=== PATIENT | female | born 1960 | race Caucasian/White ===

== ENCOUNTER 2018-05-05 20:31 | Emergency (ER) | payer MEDICAID ==
[~2018-05-05] VITALS: Ht 165.1 cm; Wt 82.0 kg
[~2018-05-05 20:31] MED LIST: ACET1TAB12 PO; ALBU18HF2 INH; ALBU8HFA PO; AZIT250T PO; CLIN300C85 PO; HYDR-4383 PO; LISI-600; LORA1TAB; PRED50TA PO
[2018-05-05 20:39] VITALS: BP 164/95
[2018-05-05] MEDS ORDERED: LIDOcaine 1.5% w/epinephrine 1:200,000 5ml ampul IJ ONE (21:30)
[2018-05-05] MEDS ORDERED: ibuprofen tablet 400 MG TABLET PO ONE (21:30)
[2018-05-05] MEDS ORDERED: CEPH-572 PO (21:32)
[2018-05-05] MEDS ORDERED: LIDOcaine 1% w/epiNEPHrine 1:200,000 30ml vial IJ ONE (21:40)
[2018-05-05] MEDS ORDERED: cephalexin 250mg capsule PO ONE (22:00)
== END 2018-05-05 22:14 | disposition home or self-care (01) ==
LOC: ER 20:32
DX: L02.512 Cutaneous abscess of left hand (principal); T63.391A Toxic effect of venom of other spider, accidental (unintentional), initial encounter; I10 Essential (primary) hypertension; Z72.89 Other problems related to lifestyle; Z56.0 Unemployment, unspecified; Z88.1 Allergy status to other antibiotic agents; Z88.6 Allergy status to analgesic agent; Z88.8 Allergy status to other drugs, medicaments and biological substances; Y92.89 Other specified places as the place of occurrence of the external cause
CPT/HCPCS: 10060; 99283; J3490

== ENCOUNTER 2019-01-28 17:18 | Emergency (ER) | payer MEDICAID ==
[~2019-01-28] VITALS: Ht 165.1 cm; Wt 77.3 kg
[~2019-01-28 17:18] MED LIST changes: +CLIN-90 PO; -CLIN300C85 PO
[2019-01-28] MEDS ORDERED: ketorolac tromethamine 15mg/ml inj. IM ONE (18:30)
[2019-01-28] MEDS ORDERED: DOXY100C2 PO (18:39)
[2019-01-28] MEDS ORDERED: IBUP-1985 PO (18:41)
[2019-01-28 19:01] VITALS: BP 197/127
== END 2019-01-28 18:48 | disposition home or self-care (01) ==
LOC: ER 17:19
DX: M70.32 Other bursitis of elbow, left elbow (principal); L03.114 Cellulitis of left upper limb; I10 Essential (primary) hypertension; G89.29 Other chronic pain; F32.9 Major depressive disorder, single episode, unspecified; F10.99 Alcohol use, unspecified with unspecified alcohol-induced disorder; F12.90 Cannabis use, unspecified, uncomplicated; Z86.14 Personal history of Methicillin resistant Staphylococcus aureus infection; Z90.89 Acquired absence of other organs; Z98.51 Tubal ligation status; Z56.0 Unemployment, unspecified; Z88.2 Allergy status to sulfonamides; Z79.899 Other long term (current) drug therapy; Y90.9 Presence of alcohol in blood, level not specified; Y93.89 Activity, other specified
CPT/HCPCS: 96372; 99283; J1885

== ENCOUNTER 2019-01-31 18:44 | Emergency (ER) | payer MEDICAID ==
[~2019-01-31] VITALS: Ht 165.1 cm; Wt 78.0 kg
[~2019-01-31 18:44] MED LIST changes: -CLIN-90 PO; +CLIN-96 PO; +DOXY100C2 PO; +IBUP-1985 PO
[2019-01-31] MEDS ORDERED: piperacillin/tazo 3.375gm/50ml 50 ML IV ONE (19:40)
[2019-01-31 20:12] LABS: BASOPHILS # (AUTO) 0.1 X10'3 (0-0.2); EOSINOPHILS # (AUTO) 0.1 X10'3 (0-0.9); EOSINOPHILS % (AUTO) 1.2 % (0-6); HEMATOCRIT 47.4 % (35.0-45.0); HEMOGLOBIN 15.8 g/dl (12.0-16.0); LYMPHOCYTES # (AUTO) 2.4 X10'3 (1.1-4.8); LYMPHOCYTES % (AUTO) 23.5 % (21-51); MEAN CORPUSCULAR HEMOGLOBIN 30.4 PG (27.0-31.0); MEAN CORPUSCULAR HGB CONC 33.3 g/dL (33.0-36.5); MEAN CORPUSCULAR VOLUME 91.3 FL (78-98); MEAN PLATELET VOLUME 9.6 FL (7.4-10.4); MONOCYTES # (AUTO) 0.7 X10'3 (0-0.9); MONOCYTES % (AUTO) 6.5 % (2-12); NEUTROPHILS % (AUTO) 67.8 % (42-75); PLATELET COUNT 167 X10'3 (140-440); RED BLOOD COUNT 5.19 X10'6 (4.20-5.60); RED CELL DISTRIBUTION WIDTH 15.1 % (11.5-14.5); WHITE BLOOD COUNT 10.3 X10'3 (4.5-11.0)
[2019-01-31 20:26] LABS: ALANINE AMINOTRANSFERASE 52 U/L (12-78); ALBUMIN 3.8 G/DL (3.4-5.0); ALBUMIN/GLOBULIN RATIO 1.1 (1.1-1.5); ALKALINE PHOSPHATASE 149 IU/L (46-116); ANION GAP 10 (8-16); ASPARTATE AMINO TRANSFERASE 35 U/L (10-37); BILIRUBIN,TOTAL 0.7 MG/DL (0.1-1.0); BLOOD UREA NITROGEN 11 MG/DL (7-18); BUN/CREATININE RATIO 15.7 (6.6-38.0); CALCIUM 8.9 MG/DL (8.5-10.1); CHLORIDE 105 MMOL/L (99-107); GLUCOSE 90 MG/DL (70-104); POTASSIUM 4.3 MMOL/L (3.5-5.1); SODIUM 141 MMOL/L (135-145); TOTAL CARBON DIOXIDE 26.5 MMOL/L (24-32); TOTAL PROTEIN 7.4 G/DL (6.4-8.2); eGFR 86 ML/MIN
--- NOTE | 2019-01-31 20:38 | NUR ---
JORDY Matthews made aware of BP 189/129, PA to review VS. No new orders at this time.
[2019-01-31] MEDS ORDERED: AMOX-422 PO (20:50)
[2019-01-31] MEDS ORDERED: [UNRECOGNIZED DRUG - OTHER] PO (20:58)
[2019-01-31] MEDS ORDERED: SUMA50TA17 PO (20:58)
[2019-01-31] MEDS ORDERED: LORA10TA7 PO (20:58)
[2019-01-31] MEDS ORDERED: NAPR-996 PO (20:58)
[2019-01-31 22:12] VITALS: BP 185/129
== END 2019-01-31 22:13 | disposition home or self-care (01) ==
LOC: ER 18:44
DX: L03.114 Cellulitis of left upper limb (principal); M70.22 Olecranon bursitis, left elbow; I10 Essential (primary) hypertension; G89.29 Other chronic pain; F12.90 Cannabis use, unspecified, uncomplicated; Z56.0 Unemployment, unspecified; Z90.89 Acquired absence of other organs; Z98.51 Tubal ligation status; Z86.14 Personal history of Methicillin resistant Staphylococcus aureus infection; Z88.2 Allergy status to sulfonamides; Z79.899 Other long term (current) drug therapy
CPT/HCPCS: 36415; 71045; 80053; 85025; 93005; 96365; 99284; J2543

== ENCOUNTER 2024-11-30 15:34 | Outpatient (CLI) | payer MEDICAID ==
[~2024-11-30 15:34] MED LIST changes: -ACET1TAB12 PO; -ALBU8HFA PO; -AZIT250T PO; -CLIN-96 PO; -DOXY100C2 PO; -HYDR-4383 PO; -LISI-600; +LISI20TA28; +LORA10TA7 PO; +NAPR-1168 PO; -PRED50TA PO; +PYRI-4 PO; +SUMA50TA17 PO
[2024-11-30 16:11] VITALS: PULSE 82; RESP 16; O2SAT 91
[2024-11-30] MEDS: albuterol 2.5 MG/3 ML nebule NEB ONE (16:20)
[2024-11-30 16:23] VITALS: PULSE 80; RESP 16
== END 2024-11-30 23:59 | disposition home or self-care (01) ==
LOC: RT 15:34
PROVIDERS: ATTEND Nurse Practitioner Family
DX: R06.02 Shortness of breath (principal); R06.2 Wheezing
CPT/HCPCS: 94060; 94760